=== PATIENT | male | born 1995 | race Caucasian/White ===

== ENCOUNTER 2018-09-16 19:38 | Emergency (ER) | payer OTHER, BC ==
[2018-09-16 19:47] VITALS: BP 159/93
[2018-09-16] MEDS ORDERED: LANSOPRAZOLE 30 MG TAB.RAP.DR PO ONE (20:03)
--- NOTE | 2018-09-16 20:07 | ER Document Report ---
ED GI/ - General Chief Complaint: Abdominal Pain Stated Complaint: ABDOMINAL PAIN Time Seen by Provider: 09/16/18 20:03 Mode of Arrival: Ambulatory Information source: Patient Notes: Chief complaint: abdominal pain: History of complain:( obtained from----patient) 23 years old male presents today with epigastric pain. For the last few days on and off has not been eating well. There is burning in sensation. No fever chills nausea vomiting. Onset: As above Duration: 2 days Severity: Mild Quality: Burning Context: Possible gastritis Exacerbating factor and relieving factors: REVIEW OF SYSTEMS: CONSTITUTIONAL : Denies fever, chills, or sweats. Denies recent illness. EENT: Denies eye, ear, throat, or mouth pain or symptoms. Denies nasal or sinus congestion or discharge. Denies throat, tongue, or mouth swelling or difficulty swallowing. CARDIOVASCULAR: Denies chest pain. Denies palpitations or racing or irregular heart beat. Denies ankle edema. RESPIRATORY: Denies cough, cold, or chest congestion. Denies shortness of breath, difficulty breathing, or wheezing. GASTROINTESTINAL: Denies distention. Denies nausea, vomiting, or diarrhea. Denies blood in vomitus, stools, or per rectum. Denies black, tarry stools. Denies constipation. GENITOURINARY: Denies difficulty urinating, painful urination, burning, frequency, blood in urine, or discharge. FEMALE GENITOURINARY: Denies vaginal bleeding, heavy or abnormal periods, irregular periods. Denies vaginal discharge or odor. MUSCULOSKELETAL: Denies back or neck pain or stiffness. Denies joint pain or swelling. SKIN: Denies rash, lesions or sores. HEMATOLOGIC : Denies easy bruising or bleeding. LYMPHATIC: Denies swollen, enlarged glands. NEUROLOGICAL: Denies confusion or altered mental status. Denies passing out or loss of consciousness. Denies dizziness or lightheadedness. Denies headache. Denies weakness or paralysis or loss of use of either side. Denies problems with gait or speech. Denies sensory loss, numbness, or tingling. Denies seizures. PSYCHIATRIC: Denies anxiety or stress. Denies depression, suicidal ideation, or homicidal ideation. ALL OTHER SYSTEMS REVIEWED AND NEGATIVE. PHYSICAL EXAMINATION: GENERAL: Well-appearing, well-nourished and in no acute distress. HEAD: Atraumatic, normocephalic. EYES: Pupils equal round and reactive to light, extraocular movements intact, conjunctiva are normal. ENT: Nares patent, oropharynx clear without exudates. Moist mucous membranes. NECK: Normal range of motion, supple without lymphadenopathy LUNGS: Breath sounds clear to auscultation bilaterally and equal. No wheezes rales or rhonchi. HEART: Regular rate and rhythm without murmurs ABDOMEN: Soft, nontender, nondistended abdomen. No guarding, no rebound. No masses appreciated. Female : deferred Musculoskeletal: Normal range of motion, no pitting or edema. No cyanosis. NEUROLOGICAL: Cranial nerves grossly intact. Normal speech, normal gait. Normal sensory, motor exams PSYCH: Normal mood, normal affect. SKIN: Warm, Dry, normal turgor, no rashes or lesions noted. Dictation was performed using [email or web address] voice recognition software TRAVEL OUTSIDE OF THE [place] IN LAST 30 DAYS: No - HPI Notes: 09/16/18 20:04 Dictated - Related Data Allergies/Adverse Reactions: cefaclor [From Ceclor] Allergy (Mild, Verified 02/28/13 23:25) cefotaxime sodium [From Claforan] Allergy (Mild, Verified 02/28/13 23:23) clindamycin [Clindamycin] Allergy (Mild, Verified 02/28/13 23:25) fluticasone propionate [From Advair Diskus] Allergy (Mild, Verified 02/28/13 23: 25) Penicillins Allergy (Mild, Verified 02/28/13 23:25) salmeterol xinafoate [From Advair Diskus] Allergy (Mild, Verified 02/28/13 23:25 ) Past Medical History - Social History Smoking Status: Never Smoker Frequency of alcohol use: None Drug Abuse: None Lives with: Family Family History: None, Reviewed & Not Pertinent Traumatic Medical History: Reports: Hx Fractures - multiple Past Surgical History: Reports: Hx Herniorrhaphy, Hx Orthopedic Surgery - left knee and shoulder - Immunizations Hx Diphtheria, Pertussis, Tetanus Vaccination: Yes Review of Systems - Review of Systems Notes: Dictated Physical Exam - Vital signs Vitals: Temp Pulse Resp BP Pulse Ox 98.5 F 88 16 159/93 H 100 09/16/18 19:45 09/16/18 19:45 09/16/18 19:45 09/16/18 19:45 09/16/18 19:45 - Notes Notes: Dictated Course - Vital Signs Vital signs: Temp Pulse Resp BP Pulse Ox 98.5 F 88 16 159/93 H 100 09/16/18 19:45 09/16/18 19:45 09/16/18 19:45 09/16/18 19:45 09/16/18 19:45 Discharge - Discharge Clinical Impression: Gastritis Qualifiers: Gastritis type: unspecified gastritis Chronicity: acute Gastritis bleeding: without bleeding Qualified Code(s): K29.00 - Acute gastritis without bleeding Condition: Fair Disposition: HOME, SELF-CARE Instructions: Gastritis (COUNT [facility]CLUDES THE [facility]) Referrals: NAVID NARANJO MD [Primary Care Provider] - Follow up as needed
== END 2018-09-16 20:11 | disposition home or self-care (01) ==
LOC: ER 19:38
DX: K29.00 Acute gastritis without bleeding (principal); R10.13 Epigastric pain; Z88.0 Allergy status to penicillin; Z88.3 Allergy status to other anti-infective agents
CPT/HCPCS: 99284

== ENCOUNTER 2018-12-20 18:27 | Emergency (ER) | payer BC ==
[2018-12-20] MEDS ORDERED: ONDANSETRON HCL INJ/PF 4 MG/2 ML SDV IV ONE (19:26)
[2018-12-20] MEDS ORDERED: NORMAL SALINE 1000 ML 1,000 ML IV ONE (19:26)
[2018-12-20] MEDS ORDERED: KETOROLAC TROMETHAMINE INJ/PF 30 MG/1 ML SDV IV ONE (19:26)
--- NOTE | 2018-12-20 19:27 | ER Document Report ---
ED Medical Screen (RME) - General Chief Complaint: Abdominal Pain Stated Complaint: ABDOMINAL PAIN Time Seen by Provider: 12/20/18 19:19 Primary Care Provider: NAVID NARANJO MD [Primary Care Provider] - Follow up as needed TRAVEL OUTSIDE OF THE [place] IN LAST 30 DAYS: No - HPI Notes: 12/20/18 19:26 Patient is a 23-year-old male that presents to the emergency department for chief complaint of right flank pain. Patient reports pain in his right lower quadrant radiating up into his right back. The pain started and then improved over the weekend. He states it came back today more severe. It is sharp and stabbing in nature. He has not taken any [id number] medications. He reports chills but denies any fevers. He denies any dysuria or urinary frequency. Patient denies history of kidney stones in the past. He does report diarrhea with no vomiting.. ROS: GENERAL: chills CV: Denies chest pain PHYSICAL EXAMINATION: GENERAL: Appears uncomfortable, well-nourished HEAD: Atraumatic, normocephalic. EYES: Pupils equal round extraocular movements intact, conjunctiva are normal. ENT: Nares patent NECK: Normal range of motion LUNGS: No respiratory distress Musculoskeletal: Normal range of motion NEUROLOGICAL: Normal speech, normal gait. PSYCH: Normal mood, normal affect. MDM: Patient seen and examined for rapid initial assessment. Vital signs reviewed. A comprehensive ED assessment and evaluation of the patient, analysis of test results and completion of the medical decision making process will be conducted by additional ED providers. - Related Data Allergies/Adverse Reactions: cefaclor [From Ceclor] Allergy (Mild, Verified 12/20/18 18:33) cefotaxime sodium [From Claforan] Allergy (Mild, Verified 12/20/18 18:33) clindamycin [Clindamycin] Allergy (Mild, Verified 12/20/18 18:33) fluticasone propionate [From Advair Diskus] Allergy (Mild, Verified 12/20/18 18:33) Penicillins Allergy (Mild, Verified 12/20/18 18:33) salmeterol xinafoate [From Advair Diskus] Allergy (Mild, Verified 12/20/18 18:33) Past Medical History - Social History Chew tobacco use (# tins/day): No Frequency of alcohol use: None Drug Abuse: None Renal/ Medical History: Denies: Hx Peritoneal Dialysis Traumatic Medical History: Reports: Hx Fractures - multiple Past Surgical History: Reports: Hx Herniorrhaphy, Hx Orthopedic Surgery - left knee and shoulder - Immunizations Hx Diphtheria, Pertussis, Tetanus Vaccination: Yes Physical Exam - Vital signs Vitals: Temp Pulse Resp BP Pulse Ox 97.5 F 75 18 117/59 L 98 12/20/18 18:44 12/20/18 18:44 12/20/18 18:44 12/20/18 18:44 12/20/18 18:44 Course - Vital Signs Vital signs: Temp Pulse Resp BP Pulse Ox 97.5 F 75 18 117/59 L 98 12/20/18 18:44 12/20/18 18:44 12/20/18 18:44 12/20/18 18:44 12/20/18 18:44 Doctor's Discharge - Discharge Referrals: NAVID NARANJO MD [Primary Care Provider] - Follow up as needed
--- NOTE | 2018-12-20 20:37 | ER Document Report ---
ED GI/ - General Chief Complaint: Abdominal Pain Stated Complaint: ABDOMINAL PAIN Time Seen by Provider: 12/20/18 19:19 Primary Care Provider: NAVID NARANJO MD [COMMUNITY BASED STAFF] - Follow up as needed Mode of Arrival: Ambulatory Information source: Patient TRAVEL OUTSIDE OF THE [place] IN LAST 30 DAYS: No - HPI Patient complains to provider of: Abdominal pain, Diarrhea, Flank pain, Vomiting Onset: Last week Timing/Duration: Persistent, Worse Quality of pain: Achy, Pressure, Stabbing Severity at maximum: Moderate Severity in ED: Moderate Location: RLQ, Right flank Associated symptoms: Chills, Diarrhea, Nausea, Vomiting Exacerbated by: Denies Relieved by: Denies Similar symptoms previously: No Recently seen / treated by doctor: No Notes: 12/20/18 20:36 Patient is a 23-year-old male presenting to the emergency room today complaining of right-sided flank pain, on of last week he started to have nausea and vomiting started to feel much better over the weekend and then today developed diarrhea with abdominal cramping and pain, pain is intermittent and severe at times and associated with nausea and vomiting, he reports chills but no fever, has a history of hernia repair but no other abdominal surgeries, no sick contacts, no questionable food intake - Related Data Allergies/Adverse Reactions: cefaclor [From Ceclor] Allergy (Mild, Verified 12/20/18 19:29) cefotaxime sodium [From Claforan] Allergy (Mild, Verified 12/20/18 19:29) clindamycin [Clindamycin] Allergy (Mild, Verified 12/20/18 19:29) fluticasone propionate [From Advair Diskus] Allergy (Mild, Verified 12/20/18 19:29) Penicillins Allergy (Mild, Verified 12/20/18 19:29) salmeterol xinafoate [From Advair Diskus] Allergy (Mild, Verified 12/20/18 19:29) Past Medical History - General Information source: Patient - Social History Smoking Status: Never Smoker Chew tobacco use (# tins/day): No Frequency of alcohol use: None Drug Abuse: None Family History: None, Reviewed & Not Pertinent Patient has suicidal ideation: No Patient has homicidal ideation: No Pulmonary Medical History: Reports: Hx Asthma Renal/ Medical History: Denies: Hx Peritoneal Dialysis Traumatic Medical History: Reports: Hx Fractures - multiple Past Surgical History: Reports: Hx Abdominal Surgery - hernia repair, Hx Herniorrhaphy, Hx Orthopedic Surgery - left knee and shoulder - Immunizations Hx Diphtheria, Pertussis, Tetanus Vaccination: Yes Review of Systems - Review of Systems Constitutional: No symptoms reported EENT: No symptoms reported Cardiovascular: No symptoms reported Respiratory: No symptoms reported Gastrointestinal: See HPI Genitourinary: No symptoms reported Male Genitourinary: No symptoms reported Musculoskeletal: No symptoms reported Skin: No symptoms reported Hematologic/Lymphatic: No symptoms reported Neurological/Psychological: No symptoms reported -: Yes All other systems reviewed and negative Physical Exam - Vital signs Vitals: Temp Pulse Resp BP Pulse Ox 97.5 F 75 18 117/59 L 98 12/20/18 18:44 12/20/18 18:44 12/20/18 18:44 12/20/18 18:44 12/20/18 18:44 Interpretation: Normal - General General appearance: Appears well, Alert - HEENT Head: Normocephalic, Atraumatic Eyes: Normal Pupils: PERRL - Respiratory Respiratory status: No respiratory distress Chest status: Nontender Breath sounds: Normal Chest palpation: Normal - Cardiovascular Rhythm: Regular Heart sounds: Normal auscultation Murmur: No - Abdominal Inspection: Normal Distension: No distension Bowel sounds: Normal Tenderness: Tender - Right lower quadrant Organomegaly: No organomegaly - Back Back: Normal, Nontender - Extremities General upper extremity: Normal inspection, Nontender, Normal color, Normal ROM, Normal temperature General lower extremity: Normal inspection, Nontender, Normal color, Normal ROM, Normal temperature, Normal weight bearing. No: Erasto's sign - Neurological Neuro grossly intact: Yes Cognition: Normal Orientation: AAOx4 Marshall Coma Scale Eye Opening: Spontaneous Kevin Coma Scale Verbal: Oriented Kevin Coma Scale Motor: Obeys Commands Kevin Coma Scale Total: 15 Speech: Normal Motor strength normal: LUE, RUE, LLE, RLE Sensory: Normal - Psychological Associated symptoms: Normal affect, Normal mood - Skin Skin Temperature: Warm Skin Moisture: Dry Skin Color: Normal Course - Re-evaluation Re-evalutation: 12/20/18 22:06 Lab and imaging findings discussed with patient and family at bedside which revealed mild leukocytosis but CT scan shows no abnormalities, patient does report feeling much better and is able to tolerate p.o. intake, therefore he will be discharged with instructions for follow-up with gastroenterology and primary care, advised to return if symptoms worsen or any additional concerns, patient acknowledges understanding and agreement with this plan - Vital Signs Vital signs: Temp Pulse Resp BP Pulse Ox 97.5 F 75 18 117/59 L 98 12/20/18 18:44 12/20/18 18:44 12/20/18 18:44 12/20/18 18:44 12/20/18 18:44 - Laboratory Result Diagrams: 12/20/18 20:29 12/20/18 20:29 Laboratory results interpreted by me: 12/20/18 12/20/18 20:29 21:25 WBC 11.3 H Seg Neutrophils % 88.9 H Lymphocytes % 5.1 L Absolute Neutrophils 10.1 H Urine Ketones 80 H Urine Ascorbic Acid 40 H - Diagnostic Test Radiology reviewed: Image reviewed, Reports reviewed Discharge - Discharge Clinical Impression: Abdominal pain, Nausea and vomiting Condition: Stable Disposition: HOME, SELF-CARE Instructions: Vomiting ([facility]), Abdominal Pain ([facility]), Gastroenterology Additional Instructions: Follow up with your primary care provider and 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 Return to the emergency room immediately if symptoms worsen or any additional concerns. Prescriptions: Dicyclomine HCl [Bentyl 20 mg Tablet] 20 mg PO QID #120 tablet Forms: Return to Work Referrals: NAVID NARANJO MD [COMMUNITY BASED STAFF] - Follow up as needed
[2018-12-20 20:43] LABS: ABSOLUTE EOSINOPHILS # (AUTO) 0.1 10^3/uL (0.0-0.6); ABSOLUTE LYMPHOCYTES (AUTO) 0.6 10^3/uL (0.5-4.7); ABSOLUTE MONOCYTES (AUTO) 0.6 10^3/uL (0.1-1.4); ABSOLUTE NEUT (AUTO) 10.1 10^3/uL (1.7-8.2); BASOPHILS % (AUTO) 0.3 % (0-2); EOSINOPHILS % (AUTO) 0.5 % (0-6); HEMATOCRIT 45.4 % (37.9-51.0); HEMOGLOBIN 15.8 g/dL (13.5-17.0); LYMPHOCYTES % (AUTO) 5.1 % (13-45); MEAN CORPUSCULAR HGB CONC 34.7 g/dL (32.0-36.0); MEAN CORPUSCULAR VOLUME 84 fl (80-97); MONOCYTES % (AUTO) 5.2 % (3-13); PLATELET COUNT 285 10^3/uL (150-450); RED BLOOD COUNT 5.43 10^6/uL (4.35-5.55); RED CELL DISTRIBUTION WIDTH 12.7 % (11.5-14.0); SEGMENTED NEUTROPHILS % (AUTO) 88.9 % (42-78); TOTAL CELLS COUNTED % (AUTO) 100 %; WHITE BLOOD COUNT 11.3 10^3/uL (4.0-10.5)
[2018-12-20 21:12] LABS: ALANINE AMINOTRANSFERASE 44 U/L (21-72); ALBUMIN 4.5 g/dL (3.5-5.0); ALKALINE PHOSPHATASE 63 U/L (38-126); ANION GAP 14 (5-19); ASPARTATE AMINO TRANSFERASE 25 U/L (17-59); BILIRUBIN,DIRECT 0.4 mg/dL (0.0-0.4); BILIRUBIN,TOTAL 0.7 mg/dL (0.2-1.3); BLOOD UREA NITROGEN 14 mg/dL (7-20); CALCIUM 10.1 mg/dL (8.4-10.2); CARBON DIOXIDE 22 mmol/L (22-30); CHLORIDE 101 mmol/L (98-107); GLUCOSE 91 mg/dL (75-110); POTASSIUM 4.5 mmol/L (3.6-5.0); SODIUM 137.2 mmol/L (137-145); TOTAL PROTEIN 7.4 g/dL (6.3-8.2)
--- NOTE | 2018-12-20 21:44 | RADIOLOGY REPORT (SQ) ---
EXAM DESCRIPTION: CT ABDOMEN PELVIS WITHOUT IV CONTRAST COMPLETED DATE/TME: 12/20/2018 19:26 CLINICAL HISTORY: 23 years, Male, right flank pain This exam was performed according to our departmental dose-optimization program which includes automated exposure control, adjustment of the mA and/or kVp according to patient size and/or use of iterative reconstruction technique where applicable. FINDINGS: Visualized lung bases are within normal limits. Liver, spleen, pancreas, gallbladder, adrenal glands and kidneys are within normal limits. No hydronephrosis or biliary dilatation. There is no renal, ureteral or bladder calculus. No abdominal or pelvic lymphadenopathy. Abdominal aorta is within normal limits. Bladder is unremarkable. No dilated loops of bowel to suggest an. Mild amount of stool in the colon. No free fluid or free air. Appendix is normal. IMPRESSION: No acute disease. No evidence for nephrolithiasis or urinary obstruction.
[2018-12-20 21:58] LABS: APPEARANCE,URINE SLIGHTLY-CLOUDY; BILIRUBIN,URINE NEGATIVE (NEGATIVE); COLOR,URINE YELLOW; GLUCOSE, URINE NEGATIVE (NEGATIVE); KETONES,URINE 80 mg/dL (NEGATIVE); LEUKOCYTE ESTERASE,URINE NEGATIVE (NEGATIVE); NITRITE,URINE NEGATIVE (NEGATIVE); PROTEIN,URINE NEGATIVE (NEGATIVE); URINE SPECIFIC GRAVITY 1.028; UROBILINOGEN,URINE NEGATIVE mg/dL (<2.0)
[2018-12-20 22:26] VITALS: BP 123/60
== END 2018-12-20 22:26 | disposition home or self-care (01) ==
LOC: ER 18:27
DX: R10.9 Unspecified abdominal pain (principal); R10.31 Right lower quadrant pain; R11.2 Nausea with vomiting, unspecified; R19.7 Diarrhea, unspecified; R68.83 Chills (without fever); D72.829 Elevated white blood cell count, unspecified; J45.909 Unspecified asthma, uncomplicated; Z88.1 Allergy status to other antibiotic agents; Z88.8 Allergy status to other drugs, medicaments and biological substances; Z88.0 Allergy status to penicillin
CPT/HCPCS: 99284; 96361; 96374; 96375; 36415; 85025; 80053; 81001; 74176; J1885; J2405; J7030

== ENCOUNTER 2020-04-10 13:51 | Emergency (ER) | payer BC ==
[2020-04-10 14:26] VITALS: BP 131/75
--- NOTE | 2020-04-10 15:05 | ER Document Report ---
ED Medical Screen (RME) - General Chief Complaint: Flank Pain Stated Complaint: FLANK PAIN Time Seen by Provider: 04/10/20 15:01 Mode of Arrival: Medic Information source: Patient Notes: Patient presents with low back pain that started 4 days ago. Patient states pain was to the right flank area today and radiated to the right lateral side and into the groin. Patient states the pain made him feel lightheaded and sweaty. Patient states he vomited twice. Patient denies any fever. Patient was given Toradol and fentanyl per EMS. I have greeted and performed a rapid initial assessment of this patient. A comprehensive ED assessment and evaluation of the patient, analysis of test results and completion of the medical decision making process will be conducted by additional ED providers. TRAVEL OUTSIDE OF THE [place] IN LAST 30 DAYS: No - Related Data Allergies/Adverse Reactions: cefaclor [From Ceclor] Allergy (Mild, Verified 04/10/20 14:59) cefotaxime sodium [From Claforan] Allergy (Mild, Verified 04/10/20 14:59) clindamycin [Clindamycin] Allergy (Mild, Verified 04/10/20 14:59) fluticasone propionate [From Advair Diskus] Allergy (Mild, Verified 04/10/20 14:59) Penicillins Allergy (Mild, Verified 04/10/20 14:59) salmeterol xinafoate [From Advair Diskus] Allergy (Mild, Verified 04/10/20 14:59) Past Medical History Pulmonary Medical History: Reports: Hx Asthma Renal/ Medical History: Denies: Hx Peritoneal Dialysis Traumatic Medical History: Reports: Hx Fractures - multiple Past Surgical History: Reports: Hx Abdominal Surgery - hernia repair, Hx Herniorrhaphy, Hx Orthopedic Surgery - left knee and shoulder - Immunizations Hx Diphtheria, Pertussis, Tetanus Vaccination: Yes Physical Exam - Vital signs Vitals: Temp Pulse Resp BP Pulse Ox 98.6 F 70 18 131/75 H 99 04/10/20 14:24 04/10/20 14:24 04/10/20 14:24 04/10/20 14:24 04/10/20 14:24 - General General appearance: Alert Notes: Right flank tenderness Course - Vital Signs Vital signs: Temp Pulse Resp BP Pulse Ox 98.6 F 70 18 131/75 H 99 04/10/20 14:24 04/10/20 14:24 04/10/20 14:24 04/10/20 14:24 04/10/20 14:24
--- NOTE | 2020-04-10 15:34 | RADIOLOGY REPORT (SQ) ---
EXAM DESCRIPTION: CT ABD/PELVIS NO ORAL OR IV IMAGES COMPLETED DATE/TIME: 04/10/2020 3:19 pm REASON FOR STUDY: R flank pain COMPARISON: 12/20/2018 TECHNIQUE: CT scan of the abdomen and pelvis performed without intravenous or oral contrast. Images reviewed with lung, soft tissue, and bone windows. Reconstructed coronal and sagittal MPR images revi ewed. All images stored on PACS. All CT scanners at this facility use dose modulation, iterative reconstruction, and/or weight based d osing when appropriate to reduce radiation dose to as low as reasonably achievable (ALARA). [facility]: Dose Right [facility]: CareDose [facility]: Dose Right [facility]: Teradose 4D [facility]: Smart [employer] RADIATION DOSE: CT Rad equipment meets quality standard of care and radiation dose reduction techniq ues were employed. CTDIvol: 5.1 mGy. DLP: 274 mGy-cm.mGy. LIMITATIONS: None. FINDINGS: LOWER CHEST: No significant findings. No nodules or infiltrates. NON-CONTRASTED LIVER, SPLEEN, ADRENALS: Evaluation limited by lack of IV contrast. No identified sign ificant masses. PANCREAS: No masses. No peripancreatic inflammatory changes. GALLBLADDER: No identified stones by CT criteria. No inflammatory changes to suggest cholecystitis. RIGHT KIDNEY AND URETER: There is a 5 mm stone at the ureterovesicular junction with associated fulln ess of the upstream collecting system. Additional nonobstructing stone within the lower pole, puncta te. No solid masses although evaluation limited without intravenous contrast. LEFT KIDNEY AND URETER: No suspicious masses. Assessment limited by lack of IV contrast. No signifi cant calcifications. No hydronephrosis or hydroureter. AORTA AND RETROPERITONEUM: No aneurysm. No retroperitoneal masses or adenopathy. BOWEL AND PERITONEAL CAVITY: No obvious masses or inflammatory changes. No free fluid. APPENDIX: Normal. PELVIS, BLADDER, AND ABDOMINAL WALL:No abnormal masses. No free fluid. Bladder normal. BONES: No significant findings. OTHER: No other significant finding. IMPRESSION: 1. 5 mm stone at the distal right ureteral vesicular junction with associated fullness of the collecting system. Additional punctate nonobstructing right lower pole stone. 2. No other evidence of acute intra-abdominal/pelvic process. COMMENT: Quality ID # [id number]: Final reports with documentation of one or more dose reduction techniques (e.g., Automated exposure control, adjustment of the mA and/or kV according to patient size, use of iterative reconstruction technique) TECHNICAL DOCUMENTATION: JOB ID: [id number] 2010 [email or web address]- All Rights Reserved Reading location - IP/workstation name: [email or web address]
[2020-04-10 15:43] LABS: HEMATOCRIT 43.2 % (37.9-51.0); HEMOGLOBIN 14.9 g/dL (13.5-17.0); MEAN CORPUSCULAR HEMOGLOBIN 29.8 pg (27.0-33.4); MEAN CORPUSCULAR HGB CONC 34.5 g/dL (32.0-36.0); MEAN CORPUSCULAR VOLUME 86 fl (80-97); PLATELET COUNT 254 10^3/uL (150-450); RED BLOOD COUNT 5.01 10^6/uL (4.35-5.55); WHITE BLOOD COUNT 13.4 10^3/uL (4.0-10.5)
[2020-04-10 16:00] LABS: ALBUMIN 4.6 g/dL (3.5-5.0); ALKALINE PHOSPHATASE 56 U/L (38-126); ANION GAP 6 (5-19); ASPARTATE AMINO TRANSFERASE 27 U/L (17-59); BILIRUBIN,TOTAL 0.8 mg/dL (0.2-1.3); BLOOD UREA NITROGEN 15 mg/dL (7-20); CALCIUM 9.5 mg/dL (8.4-10.2); CARBON DIOXIDE 28 mmol/L (22-30); CHLORIDE 102 mmol/L (98-107); GLUCOSE 108 mg/dL (75-110); POTASSIUM 4.2 mmol/L (3.6-5.0); TOTAL PROTEIN 7.4 g/dL (6.3-8.2)
[2020-04-10 16:01] LABS: ABSOLUTE LYMPHOCYTES# (MANUAL) 0.5 10^3/uL (0.5-4.7); ABSOLUTE MONOCYTES # (MANUAL) 0.3 10^3/uL (0.1-1.4); BASOPHILS % (MANUAL) 0 % (0-2); EOSINOPHILS % (MANUAL) 0 % (0-6); LYMPHOCYTES % (MANUAL) 4 % (13-45); MONOCYTES % (MANUAL) 2 % (3-13); SEGMENTED NEUTROPHILS % (MAN) 94 % (42-78); TOTAL CELLS COUNTED 100
[2020-04-10 16:02] LABS: AMORPHOUS SEDIMENT,URINE 1+ /HPF; APPEARANCE,URINE TURBID; BILIRUBIN,URINE NEGATIVE (NEGATIVE); COLOR,URINE YELLOW; GLUCOSE, URINE NEGATIVE (NEGATIVE); KETONES,URINE 80 mg/dL (NEGATIVE); LEUKOCYTE ESTERASE,URINE NEGATIVE (NEGATIVE); NITRITE,URINE NEGATIVE (NEGATIVE); PLATELET COMMENT ADEQUATE; PROTEIN,URINE 30 mg/dL (NEGATIVE); RBC MORPHOLOGY COMMENT NORMO-CYTIC/CHROMIC; URINE SPECIFIC GRAVITY 1.021
--- NOTE | 2020-04-10 16:48 | ER Document Report ---
ED General - General Chief Complaint: Possible Kidney Stone Stated Complaint: FLANK PAIN Time Seen by Provider: 04/10/20 15:01 Mode of Arrival: Medic Notes: Patient is a 24-year-old white male with no reported past medical history who presents to the emergency department the chief complaint of right flank and back pain that began 4 days ago. He states it waxed and waned and was more mild in nature over the past 4 days. States today while at work it hit him suddenly, worsened. He reports the pain originating in the right low back and radiating around the right flank to the right groin. States it was associated with diaphoresis and becoming pale. He admits to some mild nausea but no overt vomiting. Denies any diarrhea. Denies any testicular pain or swelling. Denies any dysuria or other urinary complaints. States he had something similar in the past but was told it was gas pains. Denies any fever or abdominal pain. TRAVEL OUTSIDE OF THE [place] IN LAST 30 DAYS: No - Related Data Allergies/Adverse Reactions: cefaclor [From Ceclor] Allergy (Mild, Verified 04/10/20 14:59) cefotaxime sodium [From Claforan] Allergy (Mild, Verified 04/10/20 14:59) clindamycin [Clindamycin] Allergy (Mild, Verified 04/10/20 14:59) fluticasone propionate [From Advair Diskus] Allergy (Mild, Verified 04/10/20 14:59) Penicillins Allergy (Mild, Verified 04/10/20 14:59) salmeterol xinafoate [From Advair Diskus] Allergy (Mild, Verified 04/10/20 14:59) Past Medical History - General Information source: Patient - Social History Smoking Status: Never Smoker Chew tobacco use (# tins/day): No Frequency of alcohol use: None Drug Abuse: None Family History: None, Reviewed & Not Pertinent Patient has homicidal ideation: No Pulmonary Medical History: Reports: Hx Asthma Renal/ Medical History: Denies: Hx Peritoneal Dialysis Traumatic Medical History: Reports: Hx Fractures - multiple Past Surgical History: Reports: Hx Abdominal Surgery - hernia repair, Hx Herniorrhaphy, Hx Orthopedic Surgery - left knee and shoulder - Immunizations Hx Diphtheria, Pertussis, Tetanus Vaccination: Yes Review of Systems - Review of Systems Notes: As per HPI otherwise negative Physical Exam - Vital signs Vitals: Temp Pulse Resp BP Pulse Ox 98.6 F 70 18 131/75 H 99 04/10/20 14:24 04/10/20 14:24 04/10/20 14:24 04/10/20 14:24 04/10/20 14:24 - General General appearance: Appears well, Alert In distress: None - Respiratory Respiratory status: No respiratory distress Chest status: Nontender Breath sounds: Normal Chest palpation: Normal - Cardiovascular Rhythm: Regular Heart sounds: Normal auscultation - Abdominal Inspection: Normal Distension: No distension Bowel sounds: Normal Tenderness: Nontender Organomegaly: No organomegaly - Back Back: No: CVA tenderness - Neurological Neuro grossly intact: Yes Cognition: Normal Orientation: AAOx4 [place] Coma Scale Eye Opening: Spontaneous [place] Coma Scale Verbal: Oriented [place] Coma Scale Motor: Obeys Commands [place] Coma Scale Total: 15 Speech: Normal Sensory: Normal - Psychological Associated symptoms: Normal affect, Normal mood - Skin Skin Temperature: Warm Skin Moisture: Dry Skin Color: Normal Course - Re-evaluation Re-evalutation: 04/10/20 16:45 Patient resting comfortably in the bed. Pain is resolved status post medications by EMS. He was given a strainer here in the ED. Will be sent home on Flomax and [place]. Will also be given a short course of Zofran as needed. Will refer to urology. Counseled him regarding the importance of outpatient follow-up and advised to return here or any ER immediately with any new, persistent or worsening symptoms. He verbalized understood and agreed. - Vital Signs Vital signs: Temp Pulse Resp BP Pulse Ox 98.6 F 70 18 131/75 H 99 04/10/20 14:59 04/10/20 14:24 04/10/20 14:24 04/10/20 14:24 04/10/20 14:24 - Laboratory Result Diagrams: 04/10/20 15:27 04/10/20 15:27 Laboratory results interpreted by me: 04/10/20 04/10/20 04/10/20 15:27 15:27 15:27 WBC 13.4 H Seg Neuts % (Manual) 94 H Lymphocytes % (Manual) 4 L Monocytes % (Manual) 2 L Abs Neuts (Manual) 12.6 H Sodium 135.9 L Urine Protein 30 H Urine Ketones 80 H Urine Blood MODERATE H Urine Urobilinogen 4.0 H Urine Ascorbic Acid 40 H Discharge - Discharge Clinical Impression: Ureteral calculi, Ureteral colic Condition: Stable Disposition: HOME, SELF-CARE Instructions: Kidney Stone ([facility]) Additional Instructions: Please follow-up with the urologist as needed. Call your primary care doctor for follow-up outpatient. Please return here or any ER immediately with any new, persistent or worsening symptoms. Prescriptions: Tamsulosin HCl [Flomax 0.4 mg Cap.sr] 0.4 mg PO DAILY #7 cap.sr.24h Hydrocodone/Acetaminophen [[place] 5-325 Tablet] 1 each PO Q6 PRN #12 tablet PRN Reason: Ondansetron [Zofran Odt 4 mg Tablet] 4 mg PO Q8 PRN #20 tab.rapdis PRN Reason: Referrals: DEONTE EAGLE MD [[facility]OCK] - Follow up as needed
== END 2020-04-10 17:09 | disposition home or self-care (01) ==
LOC: ER 13:51
DX: N20.1 Calculus of ureter (principal); N23 Unspecified renal colic; M54.9 Dorsalgia, unspecified; R61 Generalized hyperhidrosis; Z88.8 Allergy status to other drugs, medicaments and biological substances; Z88.0 Allergy status to penicillin; Z88.1 Allergy status to other antibiotic agents; R11.0 Nausea; J45.909 Unspecified asthma, uncomplicated
CPT/HCPCS: 36415; 74176; 80053; 81001; 85025; 99284